=== PATIENT | female | born 2000 | race Caucasian/White ===

== ENCOUNTER 2021-02-28 13:23 | Observation (INO) ==
[2021-02-28] MEDS ORDERED: SODIUM CHLORIDE 0.9% 1000ML 1,000 ML IV STA (13:45)
[2021-02-28 14:17] LABS: Basophils # (auto) 0.01 K/uL (0-0.2); Basophils % (auto) 0.1 %; Eosinophils # (auto) 0.06 K/uL (0-0.5); Eosinophils % (auto) 0.6 %; Hematocrit (blood only) 41.4 % (37-47); Hemoglobin 13.8 g/dL (12.0-16.0); Immature Granulocytes # (auto) 0.02 K/uL (0.00-0.02); Immature Granulocytes % (auto) 0.2 %; Lymphocytes # (auto) 1.81 K/uL (1.2-3.4); Lymphocytes % (auto) 17.6 %; Mean Corpuscular Hemoglobin 26.4 pg (25-34); Mean Corpuscular Hgb Conc 33.3 g/dL (32-36); Mean Corpuscular Volume 79.2 fL (80-100); Mean Platelet Volume 9.2 fL (7.4-10.4); Monocytes # (auto) 0.76 K/uL (0.11-0.59); Monocytes % (auto) 7.4 %; Neutrophils # (auto) 7.63 K/uL (1.4-6.5); Neutrophils % (auto) 74.1 %; Platelet Count 374 K/uL (130-400); RDW Coefficient of Variation 13.9 % (11.5-14.5); RDW Standard Deviation 39.8 fL (36.4-46.3); Red Blood Count 5.23 M/uL (4.2-5.4); White Blood Count 10.29 K/uL (4.8-10.8)
[2021-02-28 14:41] LABS: Albumin Level 3.8 gm/dl (3.4-5.0); BUN Creatinine Ratio 14.1 (10-20); Calcium 9.4 mg/dl (8.5-10.1); Creatinine Clr Calc Pharmacy 100.9 ml/min; Est GFR (African American) 107.4 ml/min; Est GFR (Non-African American) 92.6 ml/min; Potassium 4.4 mmol/L (3.5-5.1)
[2021-02-28 14:44] LABS: Albumin Globulin Ratio 0.9 (0.9-2); Bilirubin,Total 0.3 mg/dl (0.2-1); Globulin 4.4 gm/dl (2.5-4.0); Total Protein 8.2 gm/dl (6.4-8.2)
[2021-02-28 14:55] LABS: Appearance Urine Clear (Clear); Bilirubin Urine Negative (Negative); Blood Urine Negative (Negative); Color Urine Dark Yellow; Glucose Urine UA Negative (Negative); Ketones Urine Trace (Negative); Leukocyte Esterase Urine Negative (Negative); Nitrite Urine Negative (Negative); Protein Urine Negative (Negative); Specific Gravity Urine 1.028 (1.000-1.030); Urobilinogen Urine Negative (Negative); pH Urine 5.5 (4.5-7.5)
[2021-02-28] MEDS ORDERED: OPTIRAY 300 100mL IV ONE (14:58)
--- NOTE | 2021-02-28 15:19 | Emergency Department Note ---
History of Present Illness General Chief complaint: Abdominal Pain Stated complaint: RT SIDED ABD PAIN Time Seen by Provider: 02/28/21 13:28 History of Present Illness Maximum Pain Intensity: 3 20-year-old female who presents to the emergency department with complaint of right lower quadrant abdominal pain. The patient reports that she noticed some discomfort in the center of the abdomen yesterday, and reports that overnight and this morning, the patient started to radiate more into the right lower quadrant region. The pain seems to be worse when lying on her right side, as well as bending over and walking. She has had mild intermittent nausea without vomiting. She also denies any fever or chills, diarrhea, constipation or urinary symptoms. Patient denies risk of . She denies personal history of significant dysmenorrhea, kidney stones or urinary tract infections. Her mother does have a history of endometriosis and ovarian cysts. She also has a family history of kidney stones. The patient has not noticed any darkening or blood in her urine. The patient was seen at the [facility] [place] and referred to the emergency department to rule out appendicitis. The patient rates her discomfort a 3 out of 10. She reports that the pain has somewhat improved since earlier today. Home Medications Medication Instructions Recorded Confirmed Type atomoxetine [Strattera] 60 mg PO QAM 02/28/21 02/28/21 History calcium carbonate [Tums 500] 500 mg PO ONCE 02/28/21 02/28/21 History drospirenone-ethinyl estradiol 1 tab PO QAM 02/28/21 02/28/21 History [KRISTI (28)] montelukast 10 mg PO QAM 02/28/21 02/28/21 History Allergies Allergy/AdvReac Type Severity Reaction Status Date / Time mold Allergy Intermediate wheezing, Unverified 02/28/21 15:24 itching eyes, runny nose Past Med/Surg History Medical History ADHD Exercise-induced asthma Surgical History No significant past surgical history Social History Smoking Status: Never smoker marital status: Single current occupational status: student Feels Safe at Home: Yes Review of Systems 10 system review was performed and was negative except for pertinent positives and negatives as indicated in history of present illness Physical Exam Vital Signs Vital Signs - 24 hr 02/28/21 13:25 02/28/21 14:04 02/28/21 14:11 Temperature 36.7 C Temperature Source Temporal Artery Scan Pulse Rate 104 H 95 H 94 H Pulse Rate [Right Radial] Pulse Rate from SpO2 Sensor 96 H 96 H Pulse Rhythm Regular Pulse Rhythm [Right Radial] Pulse Strength Normal Pulse Strength [Right Radial] Respiratory Rate 18 22 19 Respiratory Effort / Characteristics Non-Labored Spontaneous Respiratory Depth Normal Respiratory Pattern Regular Blood Pressure 118/85 123/84 Blood Pressure [Right Arm] Blood Pressure Mean 96 97 Blood Pressure Mean [Right Arm] Blood Pressure Position Sitting Blood Pressure Position [Right Arm] Pulse Oximetry 100 100 100 Oxygen Delivery Method Room Air Sepsis Recent Fever Within 48 Hours No Sepsis New/Unexplained Change in Mental Status N/A Sepsis Action Taken by Nursing No Action Required 02/28/21 17:23 02/28/21 17:30 02/28/21 17:32 Temperature 36.9 C 36.9 C Temperature Source Oral Oral Pulse Rate Pulse Rate [Right Radial] 82 82 Pulse Rate from SpO2 Sensor Pulse Rhythm Pulse Rhythm [Right Radial] Regular Regular Pulse Strength Pulse Strength [Right Radial] Normal Respiratory Rate 18 18 Respiratory Effort / Characteristics Non-Labored Spontaneous Respiratory Depth Normal Respiratory Pattern Regular Blood Pressure Blood Pressure [Right Arm] 129/93 129/83 Blood Pressure Mean Blood Pressure Mean [Right Arm] 105 98 Blood Pressure Position Blood Pressure Position [Right Arm] Lying Pulse Oximetry 100 100 Oxygen Delivery Method Room Air Room Air Room Air Sepsis Recent Fever Within 48 Hours Sepsis New/Unexplained Change in Mental Status Sepsis Action Taken by Nursing CONSTITUTIONAL: Healthy and well nourished. Alert and oriented X 3. Patient d oes not appear in any acute distress. HEENT: Normocephalic, atraumatic. No scleral icterus or conjunctival injection/pallor. NECK: Full active range of motion without discomfort. LYMPHATICS: No cervical chain adenopathy. RESPIRATORY: Clear to auscultation bilaterally with no wheezing, crackles, rhonchi or stridor. CARDIOVASCULAR: Regular rate and rhythm with no murmurs, rubs or gallops. GASTROINTESTINAL: Bowel sounds present in all quadrants. Patient has a positive McBurney's point tenderness and positive Rovsing/psoas sign. Negative Rovsing sign. Negative CVA tenderness. No abdominal rigidity, guarding or rebound. MUSCULOSKELETAL: Full range of motion of all joints without discomfort. INTEGUMENTARY: No rash or other significant dermatologic conditions noted. HEMATOLOGIC: No ecchymosis or petechiae. PSYCHIATRIC: Positive affect. NEUROLOGIC: No focal neurologic deficits noted. Course Course Patient history and physical exam were performed. Nurses notes were reviewed. Vital signs were reviewed and were normal. IV access was established, and labs were drawn. The patient was hydrated with a liter of normal saline. She refused any analgesics or antiemetics. Review of labs shows a normal CBC, CMP, lipase and urinalysis. Urine was negative. CT with IV contrast of the abdomen and pelvis shows evidence for an uncomplicated acute appendicitis. COVID-19 testing was also performed and was negative. Findings were discussed with Dr. Cote, ED attending physician, as well as Dr. Harvey (Germán Olivera PA-C) with general surgery. Please see their dictation for further treatment and final disposition. There was a wait for surgical services, therefore the patient was administered IV Mefoxin. She refused any additional analgesics or antiemetics while under my care. Administered Medications Discontinued Medications Sodium Chloride (Nss 1000ml) 1,000 mls @ 999 mls/hr IV .Q1H1M STA Stop: 02/28/21 14:45 Last Infusion: 02/28/21 16:44 Dose: 0 mls/hr Documented by: [id number] Admin: 02/28/21 14:04 Dose: 999 mls/hr Documented by: [id number] Cefoxitin Sodium (Mefoxin) 2,000 mg in 60 mls @ 100 mls/hr IV NOW STA Stop: 02/28/21 16:38 Last Admin: 02/28/21 17:04 Dose: 100 mls/hr Documented by: [id number] Ioversol (Optiray 300 100ml) 89 ml IV ONCE ONE Stop: 02/28/21 14:59 Last Admin: 02/28/21 14:58 Dose: 89 ml Documented by: [id number] Medical Decision Making Medical Records Attestation: I reviewed the patient's medical records. Home Medications Current Medication List: was personally reviewed by me Laboratory Data Attestation: I reviewed the patient's lab results. Result diagrams: 02/28/21 14:03 02/28/21 14:00 Lab Results 02/28/21 02/28/21 02/28/21 Range/Units 14:00 14:00 14:03 WBC 10.29 (4.8-10.8) K/uL RBC 5.23 (4.2-5.4) M/uL Hgb 13.8 (12.0-16.0) g/dL Hct 41.4 (37-47) % MCV 79.2 L (80-100) fL MCH 26.4 (25-34) pg MCHC 33.3 (32-36) g/dL RDW Std Deviation 39.8 (36.4-46.3) fL RDW Coeff of Tao 13.9 (11.5-14.5) % Plt Count 374 (130-400) K/uL MPV 9.2 (7.4-10.4) fL Immature Gran % (Auto) 0.2 % Neut % (Auto) 74.1 % Lymph % (Auto) 17.6 % Petroleum % (Auto) 7.4 % Eos % (Auto) 0.6 % Baso % (Auto) 0.1 % Neut # (Auto) 7.63 H (1.4-6.5) K/uL Lymph # (Auto) 1.81 (1.2-3.4) K/uL Petroleum # (Auto) 0.76 H (0.11-0.59) K/uL Eos # (Auto) 0.06 (0-0.5) K/uL Baso # (Auto) 0.01 (0-0.2) K/uL Immature Gran # (Auto) 0.02 (0.00-0.02) K/uL Sodium 138 (136-145) mmol/L Potassium 4.4 (3.5-5.1) mmol/L Chloride 106 (98-107) mmol/L Carbon Dioxide 29 (21-32) mmol/L Anion Gap 3.0 (3-11) BUN 13 (7-18) mg/dl Creatinine 0.89 (0.6-1.2) mg/dl Est Cr Clr Drug Dosing 100.9 ml/min Est GFR ( Amer) 107.4 ml/min Est GFR (Non-Af Amer) 92.6 ml/min BUN/Creatinine Ratio 14.1 (10-20) Glucose 88 (70-99) mg/dl Calcium 9.4 (8.5-10.1) mg/dl Total Bilirubin 0.3 (0.2-1) mg/dl AST 12 L (15-37) U/L ALT 22 (12-78) U/L Alkaline Phosphatase 64 (45-117) U/L Total Protein 8.2 (6.4-8.2) gm/dl Albumin 3.8 (3.4-5.0) gm/dl Globulin 4.4 H (2.5-4.0) gm/dl Albumin/Globulin Ratio 0.9 (0.9-2) Lipase 144 (73-393) U/L Urine Color Dark Yellow Urine Appearance Clear (Clear) Urine pH 5.5 (4.5-7.5) Ur Specific [place] 1.028 (1.000-1.030) Urine Protein Negative (Negative) Urine Glucose (UA) Negative (Negative) Urine Ketones Trace H (Negative) Urine Blood Negative (Negative) Urine Nitrite Negative (Negative) Urine Bilirubin Negative (Negative) Urine Urobilinogen Negative (Negative) Ur Leukocyte Esterase Negative (Negative) POC Ur Test (NEG) COVID-19 Eval Order SARS-CoV-2 (PCR) (Negative) 02/28/21 02/28/21 02/28/21 Range/Units 14:10 15:50 15:50 WBC (4.8-10.8) K/uL RBC (4.2-5.4) M/uL Hgb (12.0-16.0) g/dL Hct (37-47) % MCV (80-100) fL MCH (25-34) pg MCHC (32-36) g/dL RDW Std Deviation (36.4-46.3) fL RDW Coeff of Tao (11.5-14.5) % Plt Count (130-400) K/uL MPV (7.4-10.4) fL Immature Gran % (Auto) % Neut % (Auto) % Lymph % (Auto) % Petroleum % (Auto) % Eos % (Auto) % Baso % (Auto) % Neut # (Auto) (1.4-6.5) K/uL Lymph # (Auto) (1.2-3.4) K/uL Petroleum # (Auto) (0.11-0.59) K/uL Eos # (Auto) (0-0.5) K/uL Baso # (Auto) (0-0.2) K/uL Immature Gran # (Auto) (0.00-0.02) K/uL Sodium (136-145) mmol/L Potassium (3.5-5.1) mmol/L Chloride (98-107) mmol/L Carbon Dioxide (21-32) mmol/L Anion Gap (3-11) BUN (7-18) mg/dl Creatinine (0.6-1.2) mg/dl Est Cr Clr Drug Dosing ml/min Est GFR ( Amer) ml/min Est GFR (Non-Af Amer) ml/min BUN/Creatinine Ratio (10-20) Glucose (70-99) mg/dl Calcium (8.5-10.1) mg/dl Total Bilirubin (0.2-1) mg/dl AST (15-37) U/L ALT (12-78) U/L Alkaline Phosphatase (45-117) U/L Total Protein (6.4-8.2) gm/dl Albumin (3.4-5.0) gm/dl Globulin (2.5-4.0) gm/dl Albumin/Globulin Ratio (0.9-2) Lipase (73-393) U/L Urine Color Urine Appearance (Clear) Urine pH (4.5-7.5) Ur Specific [place] (1.000-1.030) Urine Protein (Negative) Urine Glucose (UA) (Negative) Urine Ketones (Negative) Urine Blood (Negative) Urine Nitrite (Negative) Urine Bilirubin (Negative) Urine Urobilinogen (Negative) Ur Leukocyte Esterase (Negative) POC Ur Test NEG (NEG) COVID-19 Eval Order Covid19 at [facility] SARS-CoV-2 (PCR) NEGATIVE (Negative) Imaging Data Attestation: I personally reviewed and interpreted this imaging study as follows: My Impression: My interpretation of a CT with IV contrast of the abdomen and pelvis shows evidence for an uncomplicated acute appendicitis. Radiologist report was also reviewed. Radiologist's Impression: Abdomen/Pelvis CT 02/28/21 13:45 CT SCAN OF THE ABDOMEN AND PELVIS WITH IV CONTRAST CLINICAL HISTORY: Right lower quadrant abdominal pain. COMPARISON STUDY: No priors. TECHNIQUE: Following the IV administration of 89 cc of Optiray 300, CT scan of the abdomen and pelvis is performed from the lung bases to the proximal femora. Images are reviewed in the axial, sagittal, and coronal planes. IV contrast was administered without complication. A dose lowering technique was utilized adhering to the principles of ALARA. CT DOSE: 311.62 mGy.cm FINDINGS: Lung bases: The heart is normal in size and without pericardial effusion. The lung bases are clear. Liver: The contrast-enhanced liver is normal in size, contour, and attenuation. There is no intrahepatic biliary ductal dilatation. The hepatic veins and portal veins are patent. Gallbladder: Contracted. Spleen: Normal in size and attenuation. Pancreas: Unremarkable. Adrenal glands: Unremarkable. Kidneys: The contrast enhanced kidneys are normal in size and without hydronephrosis. The kidneys enhance symmetrically. Abdominal vasculature: The abdominal aorta is normal in course and caliber. Bowel: There is no bowel obstruction. Mild fecal retention is seen throughout the colon. The appendix is distended and fluid-filled measuring up to 9 mm diameter. This is best seen on image #342. Appendiceal wall is thickened and hyperemic and there is mild periappendiceal inflammation. Findings are consistent with acute appendicitis. No organized fluid collection is seen to suggest abscess. Peritoneum: There is no intraperitoneal free air or abdominal ascites. There is a small fat-containing umbilical hernia. Lymphadenopathy: None. Pelvic viscera: The bladder, uterus, and adnexa are normal as visualized. Trace free fluid is noted in the cul-de-sac. Skeletal structures: No lytic or blastic lesions are seen. IMPRESSION: 1. Findings are consistent with acute appendicitis. 2. There is no evidence of abscess or perforation. 3. Trace nonspecific free fluid is noted in the cul-de-sac. ACT 112: Negative or not required by law. Electronically signed by: Placido Rubio M.D. 02/28/2021 3:24 PM Blood Pressure Blood Pressure Findings: Normal blood pressure MDM Narrative Patient presents to the emergency department with complaint of classic symptoms of appendicitis with generalized central abdominal pain radiating into the right lower quadrant. She does have a positive psoas and obturator sign, along with positive McBurney's point tenderness. CT imaging shows an uncomplicated acute appendicitis. CT also does not show evidence for other acute intra-abdominal etiologies such as diverticulitis, bowel obstruction or free air. Laboratory studies are not consistent with UTI, pancreatitis, cholecystitis or hepatitis. Impression & Plan Acute appendicitis Discharge Plan Visit Data Chief Complaint: Abdominal Pain Stated Complaint: RT SIDED ABD PAIN ED Provider: Blair Cote ED Midlevel Provider: Piero Tillman Discharge Problem: Acute appendicitis Discharge Instructions Interventions: ED Discharge Assessment Last Done: 02/28/21 17:32 Forms Stand Alone Forms: [facility] MYR Prescriptions Prescriptions: No Action montelukast 10 mg Tablet 10 mg PO QAM RF: 0 atomoxetine [Strattera] 60 mg Capsule 60 mg PO QAM RF: 0 drospirenone-ethinyl estradiol [KRISTI (28)] 3-0.02 mg Tablet 1 tab PO QAM RF: 0 calcium carbonate [Tums 500] 500 mg calcium (1,250 mg) Tablet,Chewable 500 mg PO ONCE RF: 0 Referrals Referrals: PCP,NO [Primary Care Provider] - Discharge Problem: Acute appendicitis Qualifiers: Acute appendicitis type: with localized peritonitis Appendicitis gangrene presence: without gangrene Appendicitis perforation presence: without perforation Appendicitis abscess presence: without abscess Qualified Code(s): K35.30 - Acute appendicitis with localized peritonitis, without perforation or gangrene
--- NOTE | 2021-02-28 15:25 | CT Scan Report ---
CT SCAN OF THE ABDOMEN AND PELVIS WITH IV CONTRAST CLINICAL HISTORY: Right lower quadrant abdominal pain. COMPARISON STUDY: No priors. TECHNIQUE: Following the IV administration of 89 cc of Optiray 300, CT scan of the abdomen and pelvi s is performed from the lung bases to the proximal femora. Images are reviewed in the axial, sagittal , and coronal planes. IV contrast was administered without complication. A dose lowering technique wa s utilized adhering to the principles of ALARA. CT DOSE: 311.62 mGy.cm FINDINGS: Lung bases: The heart is normal in size and without pericardial effusion. The lung bases are clear. Liver: The contrast-enhanced liver is normal in size, contour, and attenuation. There is no intrahepa tic biliary ductal dilatation. The hepatic veins and portal veins are patent. Gallbladder: Contracted. Spleen: Normal in size and attenuation. Pancreas: Unremarkable. Adrenal glands: Unremarkable. Kidneys: The contrast enhanced kidneys are normal in size and without hydronephrosis. The kidneys enh ance symmetrically. Abdominal vasculature: The abdominal aorta is normal in course and caliber. Bowel: There is no bowel obstruction. Mild fecal retention is seen throughout the colon. The appendix is distended and fluid-filled measuring up to 9 mm diameter. This is best seen on image #342. Appen diceal wall is thickened and hyperemic and there is mild periappendiceal inflammation. Findings are c onsistent with acute appendicitis. No organized fluid collection is seen to suggest abscess. Peritoneum: There is no intraperitoneal free air or abdominal ascites. There is a small fat-containin g umbilical hernia. Lymphadenopathy: None. Pelvic viscera: The bladder, uterus, and adnexa are normal as visualized. Trace free fluid is noted i n the cul-de-sac. Skeletal structures: No lytic or blastic lesions are seen. IMPRESSION: 1. Findings are consistent with acute appendicitis. 2. There is no evidence of abscess or perforation. 3. Trace nonspecific free fluid is noted in the cul-de-sac. ACT 112: Negative or not required by law. Electronically signed by: Placido Rubio M.D. 02/28/2021 3:24 PM
[2021-02-28] MEDS ORDERED: cefOXitin 2,000 MG/60 ML BAG IV STA (16:03)
--- NOTE | 2021-02-28 16:29 | Anesthesiology Consultation ---
Date of Service February 28, 2021 Assessment & Plan (1) Encounter for pre-operative examination: Chart Review Chart Review: Acceptable Risk for Surgery History Surgery Operation Date: 02/28/21 11:20 Proposed Procedures p Laparoscopic Appendectomy - Deondre Harvey DO, FACS Height/Weight Height: 5 ft 8 in Weight: 65.3 kg Allergies Allergy/AdvReac Type Severity Reaction Status Date / Time mold Allergy Intermediate wheezing, Unverified 02/28/21 15:24 itching eyes, runny nose Medications Home Medications Medication Instructions Recorded Confirmed Last Taken atomoxetine [Strattera] 60 mg PO QAM 02/28/21 02/28/21 02/28/21 calcium carbonate [Tums 500] 500 mg PO ONCE 02/28/21 02/28/21 02/28/21 drospirenone-ethinyl estradiol 1 tab PO QAM 02/28/21 02/28/21 02/28/21 [KRISTI (28)] montelukast 10 mg PO QAM 02/28/21 02/28/21 02/28/21 Past Medical History Medical History No significant past medical history Past Surgical History Surgical History No significant past surgical history Social History Smoking Status: Never smoker Physical Exam Vital Signs Last Vital Signs Temp 36.7 C 02/28/21 13:25 Pulse 94 H 02/28/21 14:11 Resp 19 02/28/21 14:11 BP 123/84 02/28/21 14:04 Pulse Ox 100 02/28/21 14:11 Testing Laboratory Results 02/28/21 14:03 02/28/21 14:00 Urine Color Dark Yellow 02/28/21 14:00 Urine Appearance Clear (Clear) 02/28/21 14:00 Urine pH 5.5 (4.5-7.5) 02/28/21 14:00 Ur Specific [place] 1.028 (1.000-1.030) 02/28/21 14:00 Urine Protein Negative (Negative) 02/28/21 14:00 Urine Glucose (UA) Negative (Negative) 02/28/21 14:00 Urine Ketones Trace (Negative) H 02/28/21 14:00 Urine Nitrite Negative (Negative) 02/28/21 14:00 Ur Leukocyte Esterase Negative (Negative) 02/28/21 14:00 02/28/21 14:10 POC Ur Test NEG covid pending
[2021-02-28] MEDS ORDERED: NEOSTIGMINE METHYLSULFATE 5 MG/5 ML SYR ONE (16:42)
[2021-02-28] MEDS ORDERED: ONDANSETRON INJ 2 MG/ML 2 ML VIAL ONE (16:42)
[2021-02-28] MEDS ORDERED: DEXAMETHASONE SOD INJ 4 MG/ML VIAL ONE (16:42)
[2021-02-28] MEDS ORDERED: LIDOCAINE HCL 2% 2 ML VIAL/AMP(20MG/ML) INFIL ONE (16:42)
[2021-02-28] MEDS ORDERED: PROPOFOL IV EMULSION 10 MG/ML 20 ML VIAL IV ONE (16:42)
[2021-02-28] MEDS ORDERED: GLYCOPYRROLATE 0.2 MG/ML VIAL ONE ×2 (16:42→18:17)
[2021-02-28] MEDS ORDERED: fentaNYL citrate 100 MCG/2 ML VIAL ONE (16:43)
[2021-02-28] MEDS ORDERED: MIDAZOLAM HCL 1 MG/ML 2ML VIAL ONE (16:43)
--- NOTE | 2021-02-28 16:46 | History & Physical Report ---
Date of Service February 28, 2021 Assessment & Plan (1) Acute appendicitis: Admission and Anticipated Discharge Date Admission Date: CT and exam are consistent with appendicitis. Will plan for laparoscopic appendectomy this evening and overnight observation. Mefoxin was given in the ED. History of Present Illness Primary Care Provider: NO PCP 20 y/o female with approx 24 hours abdominal pain localizing to the RLQ today. Has had bloating and some nausea, no vomiting. No previous surgery. Was seen at urgent care and referred to the ED for possible appendicitis. Allergies Allergy/AdvReac Type Severity Reaction Status Date / Time mold Allergy Intermediate wheezing, Unverified 02/28/21 15:24 itching eyes, runny nose Home Medications Medication Instructions Recorded Confirmed Type atomoxetine [Strattera] 60 mg PO QAM 02/28/21 02/28/21 History calcium carbonate [Tums 500] 500 mg PO ONCE 02/28/21 02/28/21 History drospirenone-ethinyl estradiol 1 tab PO QAM 02/28/21 02/28/21 History [KRISTI (28)] montelukast 10 mg PO QAM 02/28/21 02/28/21 History Past Med/Surg History Medical History No significant past medical history Surgical History No significant past surgical history Social History Smoking Status: Never smoker marital status: Single current occupational status: student Feels Safe at Home: Yes Review of Systems Constitutional: + anorexia; no fever and no chills Gastrointestinal: + abdominal pain and + nausea; no vomiting Physical Exam 2 Constitutional: WD/WN, vitals as above Respiratory: normal respiratory effort, lungs clear to auscultation Cardiovascular: RRR, no murmur, no edema Gastrointestinal (Abdomen): Inspection/Auscultation: + abdomen distended (slightly) Percussion/Palpation: + abdomen tender (RLQ) and abdomen soft; no guarding Results & Data Results & Data ([facility]) Vital Signs (Past 12 Hours) Vital Signs Temp Pulse Resp BP Pulse Ox 02/28/21 14:11 94 H 19 100 02/28/21 14:04 95 H 22 123/84 100 02/28/21 13:25 36.7 C 104 H 18 118/85 100 Supervising Physician Co-Signing Physician Notes Patient seen and examined, labs and imaging reviewed, agree with above. 20-year-old female with CT evidence of acute appendicitis. On exam she is tender to palpation in the right lower quadrant with localized guarding. I personally reviewed the CT scan and agree with the assessment of acute appendicitis. Plan for laparoscopic appendectomy. Risk of the procedure were reviewed to include but not limited to bleeding, infection, normal appendix, conversion to open, damage to surrounding structures, need for future or more extensive surgery, and the risk of anesthesia. Preoperative antibiotics given. The diagnosis, details of the procedure and recovery, and plan of care discussed with the patient, all questions were answered, the patient expressed understanding agrees with plan of care as stated PG Care Time/CCT Total # of Minutes Spent Total Time Spent with Patient: Total time spent is greater than 50% in coordination of care (as documented) at patient's floor/unit and/or counseling patient: Coding Level of Care Code None Diagnoses Acute appendicitis K35.80
[2021-02-28] MEDS ORDERED: ROCURONIUM BROMIDE 10 MG/ML 5 ML VIAL IV ONE (16:47)
[2021-02-28] MEDS ORDERED: LARYING-O-JET KIT (LTA) ONE (16:47)
[2021-02-28] MEDS ORDERED: BUPIVACAINE 0.5 % 5 MG/1 ML MPF 30ML VIAL ONE (17:25)
[2021-02-28] MEDS ORDERED: ONDANSETRON INJ 2 MG/ML 2 ML VIAL IV PRN ×2 (17:27→20:05)
[2021-02-28] MEDS ORDERED: fentaNYL citrate 100 MCG/2 ML VIAL IV PRN (17:27)
[2021-02-28] MEDS ORDERED: ATROPINE SULFATE 0.1 MG/ML 10ML SYR IV PRN (17:27)
[2021-02-28] MEDS ORDERED: HYDROmorphone INJ 1 MG/ML SYRINGE IV PRN (17:27)
[2021-02-28] MEDS ORDERED: LABETALOL HCL IV 5 MG/ML 20ML IV PRN (17:27)
[2021-02-28] MEDS ORDERED: MEPERIDINE HCL 25 MG/ML CARP/VIAL IV PRN (17:27)
[2021-02-28] MEDS ORDERED: ePHEDrine sulfate 50 MG/ML AMP IV PRN (17:27)
[2021-02-28] MEDS ORDERED: PHENYLEPHRINE 100MCG/ML 5ML SYR IV PRN (17:27)
[2021-02-28] MEDS ORDERED: diphenhydrAMINE 50 MG/ML VIAL ONE (17:55)
--- NOTE | 2021-02-28 18:32 | Operative Report ---
PG Post Operative Report Pre & Post Diagnosis Operation Date: 02/28/21 11:20 Pre-Op Diagnosis: Acute Appendicitis Post-Op Diagnosis: Acute Appendicitis I identified the patient and participated in the time-out.: Yes Procedure Operation Date: 02/28/21 11:20 Actual Procedures p Laparoscopic Appendectomy - Deondre Harvey DO, FACS Surgeon Deondre Harvey DO, FACS Security Sergeant Debbie Haney Estimated Blood Loss 5 Findings Consistent with Post-Op Diagnosis Acute, nonperforated appendicitis Specimens Appendix Anesthesia Type General Complications none Disposition Accompanied Patient To Recovery: No Disposition: Recovery Room Indications A 1-year-old female presented with signs symptoms of acute appendicitis confirmed by CT scan. Plan for laparoscopic appendectomy. The risks of the procedure were discussed, all questions were answered, and the patient agreed to proceed with surgery as planned. Description of Procedure The patient was properly identified, consented, and taken to the operating room where she was placed in the supine position. General endotracheal anesthesia was induced. SCDs and a safety belt were placed. Preoperative antibiotics were administered. A Babcock catheter was not placed. The patient's abdomen was prepped and draped in the standard sterile fashion. Surgical timeout was performed and all parties were in agreement that this was the correct patient and procedure to be performed and we continued as planned. A curvilinear infraumbilical incision was made with electrocautery and deepened down to the fascia with blunt dissection. The base of the umbilicus was grasped with a Susi and elevated towards the ceiling. An incision was made in the midline fascia with a knife and entry into the peritoneum was confirmed. Stay suture of 0 Vicryl was placed and a Gotti trocar was inserted. The abdomen was insufflated with carbon dioxide which the patient tolerated without incident. The laparoscope was inserted and no damage from initial trocar placement was noted, no gross abnormalities were noted within the 4 quadrants the abdomen. 5 mm ports were then placed in the left lower quadrant with care not to damage the epigastric vessels, and in the suprapubic midline with care not to damage the bladder. The patient was placed in Trendelenburg position and rotated towards t he left. The small bowel was swept away from the right lower quadrant. The cecum was grasped with an atraumatic grasper exposing the appendix. The appendix was mildly inflamed and there was no evidence of perforation. There was some reactive fluid in the pelvis. A window was created between the base of the appendix and the mesoappendix. A castaneda loaded endoscopic stapler was then used to divide the appendix at its base. A castaneda load was then used to divide the mesoappendix. Hemostasis was good. The appendix was placed in an Endo Catch bag and removed through the umbilical port site. The right lower quadrant and pelvis was irrigated and hemostasis was found to be good. 5 mm trochars were removed under direct visualization and the abdomen was allowed to collapse. The umbilical port site fascia was closed with 0 Vicryl suture. The wound was irrigated, and the skin of all ports was closed with 4-0 Monocryl subcuticular sutures. Dermabond was placed over the wounds. The patient was extubated in the operating room and taken to the PACU where she recovered without apparent incident. All sponge, instrument and needle counts were correct at the conclusion of the procedure. The patient tolerated the procedure well. The physician's anesthetic assistant was present and scrubbed for the entire to the case. She was critical in positioning the patient, prepping and draping, retraction and exposure, driving the laparoscope, removal of the appendix, closure the incisions, and placement of the dressings. I attest to the content of the Intraoperative Record and any orders documented therein. Any exceptions are noted below.
--- NOTE | 2021-02-28 19:25 | Anesthesiology Progress Note ---
Date of Service February 28, 2021 Anesthesia Post Procedure Vital Signs Vital Signs: Temp Pulse Pulse Pulse Resp BP BP 02/28/21 19:15 66 14 127/85 02/28/21 19:05 69 16 124/82 02/28/21 18:55 77 12 117/72 02/28/21 18:47 36.0 C L 79 14 114/71 02/28/21 17:30 36.9 C 82 18 129/83 02/28/21 17:23 36.9 C 82 18 129/93 02/28/21 14:11 94 H 19 02/28/21 14:04 95 H 22 123/84 02/28/21 13:25 36.7 C 104 H 18 118/85 Pulse Ox 02/28/21 19:15 98 02/28/21 19:05 100 02/28/21 18:55 100 02/28/21 18:47 100 02/28/21 17:30 100 02/28/21 17:23 100 02/28/21 14:11 100 02/28/21 14:04 100 02/28/21 13:25 100 Pain Intensity Right Abdomen: Pain Intensity: 0 Transfer of Care Handoff Completed per policy Notes Mental Status: alert / awake / arousable Patient Amnestic to Procedure: Yes Nausea / Vomiting: adequately controlled Pain: adequately controlled Airway Patency, RR, SpO2: stable & adequate BP & HR: stable & adequate Hydration State: stable & adequate Anesthetic Complications: no major complications apparent and Pt Satisfied with anesthetic care
[2021-02-28] MEDS: LACTATED RINGER'S 1,000 ML IV SCH (19:30)
[2021-02-28] MEDS ORDERED: oxyCODONE/ACETAMINOPHEN 5mg/325mg TAB PO PRN ×2 (20:05)
[2021-02-28] MEDS ORDERED: MoRPHine SULFATE 2 MG/ML CARP IV PRN (20:05)
[2021-02-28] MEDS ORDERED: oxyCODONE/ACETAMINOPHEN 5mg/325mg TAB PO ONE (20:10)
[2021-03-01] MEDS ORDERED: COUGH DROP (SUGAR FREE) LOZ 24 LOZ/1 BOX BUCCAL ONE (06:20)
[2021-03-01 06:23] LABS: Hematocrit (blood only) 38.1 % (37-47); Immature Granulocytes # (auto) 0.02 K/uL (0.00-0.02); Immature Granulocytes % (auto) 0.2 %; Lymphocytes # (auto) 1.42 K/uL (1.2-3.4); Lymphocytes % (auto) 12.1 %; Mean Corpuscular Hgb Conc 34.1 g/dL (32-36); Mean Platelet Volume 9.5 fL (7.4-10.4); Monocytes # (auto) 0.59 K/uL (0.11-0.59); Neutrophils % (auto) 82.7 %; Platelet Count 339 K/uL (130-400); RDW Coefficient of Variation 13.9 % (11.5-14.5); RDW Standard Deviation 39.5 fL (36.4-46.3); Red Blood Count 4.82 M/uL (4.2-5.4); White Blood Count 11.73 K/uL (4.8-10.8)
[2021-03-01] MEDS: LACTATED RINGER'S 1,000 ML IV SCH (06:30)
--- NOTE | 2021-03-01 08:13 | Surgery Progress Note ---
Date of Service March 01, 2021 Assessment & Plan (1) Acute appendicitis: POD#1 laparoscopic appendectomy WBC 11, VSS, afebrile Abdomen soft, pain well controlled, incisions c/d/i Patient tolerating clear liquids, will advance diet as tolerates If tolerates a diet and pain remains well controlled, patient is okay for discharge to home today Dispo instructions reviewed, follow up in clinic with Dr Harvey in 1-2 weeks Admission and Anticipated Discharge Date Admission Date: February 28, 2021 Supervising Physician Co-Signing Physician Notes Patient seen and examined, agree with above. POD #1 laparoscopic appendectomy. Doing well, pain controlled. Feels better than yesterday. Tolerated regular diet. On exam she is afebrile stable vitals. Her abdomen soft, appropriate tender to palpation. Incisions with Dermabond in place with no evidence of infection. Plan to discharge to home today, follow-up in the office in 2 weeks. Activity restrictions and wound care instructions reviewed. Return precautions given. Call with questions or concerns. Subjective Patient states she is feeling well this AM, much better compared to yesterday. She has some mild discomfort in her throat, R shoulder, and some sam-incisional pain that is manageable. She is tolerating clear liquids without issues. Physical Exam Physical Exam: awake/alert Constitutional: well developed and well nourished; no acute distress Respiratory: normal respiratory effort Gastrointestinal (Abdomen): Inspection/Auscultation: + abdominal surgical incision (c/d/i with dermabond overtop, no signs of infection); abdomen not distended Percussion/Palpation: + abdomen tender (mild discomfort to palpation sam-incisionally) and abdomen soft Results & Data ([facility]) Vital Signs (Past 12 Hours) Vital Signs Temp Pulse Pulse Pulse Resp BP Pulse Ox 03/01/21 07:30 37 C 86 18 119/75 99 03/01/21 03:31 36.7 C 92 H 15 109/70 98 02/28/21 22:53 36.7 C 98 H 15 107/70 100 02/28/21 21:54 89 15 101/70 100 02/28/21 20:50 36.2 C L 91 H 16 109/72 96 02/28/21 20:15 36.2 C L 72 16 144/77 H 99 PG Care Time/CCT Total # of Minutes Spent Total Time Spent with Patient: Total time spent is greater than 50% in coordination of care (as documented) at patient's floor/unit and/or counseling patient: Coding Level of Care Code None Diagnoses Acute appendicitis K35.30 Acute appendicitis type: with localized peritonitis Appendicitis abscess presence: without abscess Appendicitis gangrene presence: without gangrene Appendicitis perforation presence: without perforation (1) Acute appendicitis Acute appendicitis type: with localized peritonitis Appendicitis abscess presence: without abscess Appendicitis gangrene presence: without gangrene Appendicitis perforation presence: without perforation Qualified Code(s): K35.30 - Acute appendicitis with localized peritonitis, without perforation or gangrene
--- NOTE | 2021-03-01 08:46 | Anesthesiology Progress Note ---
Date of Service March 01, 2021 Anesthesia Post Procedure Vital Signs Vital Signs: Temp Pulse Pulse Pulse Pulse Resp BP 03/01/21 07:30 37 C 86 18 03/01/21 03:31 36.7 C 92 H 15 02/28/21 22:53 36.7 C 98 H 15 02/28/21 21:54 89 15 02/28/21 20:50 36.2 C L 91 H 16 02/28/21 20:15 36.2 C L 72 16 02/28/21 19:45 36.4 C L 81 18 02/28/21 19:35 36.7 C 71 16 02/28/21 19:25 36.7 C 63 18 02/28/21 19:15 66 14 02/28/21 19:05 69 16 02/28/21 18:55 77 12 02/28/21 18:47 36.0 C L 79 14 02/28/21 17:30 36.9 C 82 18 02/28/21 17:23 36.9 C 82 18 02/28/21 14:11 94 H 19 02/28/21 14:04 95 H 22 123/84 02/28/21 13:25 36.7 C 104 H 18 118/85 BP Pulse Ox 03/01/21 07:30 119/75 99 03/01/21 03:31 109/70 98 02/28/21 22:53 107/70 100 02/28/21 21:54 101/70 100 02/28/21 20:50 109/72 96 02/28/21 20:15 144/77 H 99 02/28/21 19:45 112/75 99 02/28/21 19:35 115/76 96 02/28/21 19:25 114/78 97 02/28/21 19:15 127/85 98 02/28/21 19:05 124/82 100 02/28/21 18:55 117/72 100 02/28/21 18:47 114/71 100 02/28/21 17:30 129/83 100 02/28/21 17:23 129/93 100 02/28/21 14:11 100 02/28/21 14:04 100 02/28/21 13:25 100 Pain Intensity Right Abdomen: Pain Intensity: 4 Notes Mental Status: alert / awake / arousable and participated in evaluation Patient Amnestic to Procedure: Yes Nausea / Vomiting: adequately controlled Pain: adequately controlled Airway Patency, RR, SpO2: stable & adequate BP & HR: stable & adequate Hydration State: stable & adequate Anesthetic Complications: no major complications apparent
[2021-03-01] MEDS ORDERED: ATOMOXETINE HCL 25 MG CAPSULE PO SCH (09:00)
[2021-03-01] MEDS ORDERED: MONTELUKAST SODIUM 10 MG TABLET PO SCH (09:00)
[2021-03-01] MEDS ORDERED: ATOMOXETINE HCL 60 MG CAPSULE PO SCH (09:00)
--- NOTE | 2021-03-02 12:22 | Discharge Summary ---
Date of Service March 02, 2021 Admission HPI Per Admitting Provider 20 y/o female with approx 24 hours abdominal pain localizing to the RLQ today. Has had bloating and some nausea, no vomiting. No previous surgery. Was seen at urgent care and referred to the ED for possible appendicitis. Principal Diagnosis acute appendicitis Discharge Exam awake/alert Constitutional well developed and well nourished; no acute distress Respiratory normal respiratory effort Gastrointestinal (Abdomen) Inspection/Auscultation: + abdominal surgical incision (c/d/i with dermabond overtop, no signs of infection) Percussion/Palpation: + abdomen tender (mild ttp sam-incisionally) and abdomen soft Discharge Data Allergies Allergy/AdvReac Type Severity Reaction Status Date / Time mold Allergy Intermediate wheezing, Unverified 02/28/21 15:24 itching eyes, runny nose Consultations 02/28/21 15:31 ED Decision to Admit Stat Procedures Performed Operation Date: 02/28/21 11:20 Actual Procedures p Laparoscopic Appendectomy - Deondre Harvey, DO, FACS Ordered Studies 02/28/21 13:45 CT abd pelvis IV con only Stat Hospital Course (1) Acute appendicitis: This is a 20y F who presented to the [facility] ED on 02/28 with abdominal pain. Workup in the ED showed a WBC of [address] a/p concerning for acute appendicitis. The patient was tender to palpation in the RLQ. Patient made NPO with IVF, given preop abx, and was booked for the OR. On 02/28 the patient went to the OR with Dr. Harvey for a laparoscopic appendectomy. The patient tolerated the procedure well, see operative report for full details. Post operatively the patient's diet was advanced, pain managed on prn meds, and incisions clean/dry/intact. On POD#1 the patient was deemed stable for discharge to home. She was given instructions to follow up in clinic within 2 weeks. Total Time Total Time Spent Total Time Spent (In Minutes): 10 Discharge Plan Discharge Items Patient Disposition: Home - Self-Care Reason For Visit: S/P LAP APPY Discharge Diagnosis: laparoscopic appendectomy Activity: Per Instructions section Lifting: No more than 10 pounds Bathing Comment: may shower; no soaking in tubs/pools Exercise/Sports: Wait until after follow-up appointment Driving/Machine Use: wait at least 3 days; do not drive while taking narcotics for pain Non-emergency contact: Surgeon Call non-emergency contact if: you have any medication questions, your symptoms worsen, your pain is not controlled, your pain is worsening, your pain is concerning for you, you have a fever, your temperature is above 101.5, your wound has increased redness, your wound has increased drainage and your wound pain has increased Follow-up/Referrals: Deondre Harvey, MAIKEL PALACIOS [Physician] - (Please call to schedule follow up in clinic within 1-2 weeks) PCP,NO [Primary Care Provider] - Diet: Regular Addtl Attending Provider Instructions: You may purchase Ibuprofen over the counter if needed for additional pain control over the next few days. Take with food. You have been prescribed a narcotic called Percocet to take if needed for moderate-severe pain. Do not take Tylenol concurrently with Percocet as they both contain Acetaminophen and you should not exceed >3grams of Acetaminophen within a 24 hour time period. -If you are not taking Percocet you may take Tylenol for pain. Pending Studies at Discharge: Yes Studies:: surgical pathology Stand-Alone Forms: My [facility], Smoking Cessation Medications and DC Order Prescriptions: New oxycodone-acetaminophen [Percocet] 5-325 mg tablet 1 - 2 tab PO .q4-6h PRN (Reason: pain, for initial therapy, max 6 tabs per day) Qty: 10 RF: 0 Continued montelukast 10 mg Tablet 10 mg PO QAM RF: 0 atomoxetine [Strattera] 60 mg Capsule 60 mg PO QAM RF: 0 drospirenone-ethinyl estradiol [KRISTI (28)] 3-0.02 mg Tablet 1 tab PO QAM RF: 0 calcium carbonate 500 mg calcium (1,250 mg) Tablet,Chewable 500 mg PO ONCE RF: 0 Discharge Orders: Discharge Order (Routine); Ordered 03/01/21 Ordered By: Debbie Chen/Other Patient Handouts: After an Appendectomy Admission Data Admit Date/Time: 02/28/21 18:42 Attending Provider: Deondre Harvey Admit Provider: Deondre Harvey Primary Care Provider: PCP,NADEEM Other Providers: Deondre Harvey Other Interventions: Discharge Summary Assessment (RN) Last Done: 03/01/21 12:20 Coding Level of Care Code D/C Day Management <30 mins Diagnoses Acute appendicitis K35.30 Acute appendicitis type: with localized peritonitis Appendicitis abscess presence: without abscess Appendicitis gangrene presence: without gangrene Appendicitis perforation presence: without perforation
== END 2021-03-01 14:39 | disposition home or self-care (01) ==
LOC: ED 13:23 → 3W 13:23